=== PATIENT | male | born 1950 | race Caucasian/White ===

== ENCOUNTER → 2017-09-30 | Day surgery (SDC) | payer BC ==
--- NOTE | 2017-09-22 15:19 | DIAGNOSTIC IMAGING REPORT ---
CHEST 2 VIEWS ROUTINE CLINICAL HISTORY: Preoperative evaluation. Left inguinal hernia. COMPARISON STUDY: No previous studies for comparison. FINDINGS: There is a possible 6 mm right upper lobe nodule. Lateral view demonstrates irregular opacities projecting over the heart which may reflect lingular and right middle lobe airspace opacity with possible bronchiectasis. Cardiac size is normal. Mediastinal contours are unremarkable. There is no evidence for pulmonary edema. IMPRESSION: 1. Suspected mild lingular and right middle lobe airspace opacity with possible bronchiectasis. These findings are age indeterminate. 2. Possible 6 mm right upper lobe nodule. A follow-up chest CT is recommended. Electronically signed by: Valdo Bella M.D. 09/22/2017 3:17 PM Dictated Date/Time: 09/22/2017 3:15 PM
[2017-09-22 15:41] LABS: BASO % 0.3 %; BASO ABS # 0.02 K/uL (0-0.2); EOS % 1.4 %; EOS ABS # 0.11 K/uL (0-0.5); HEMATOCRIT 44.7 % (42-52); HEMOGLOBIN 14.8 g/dL (14.0-18.0); IG# 0.02 K/uL (0.00-0.02); LYMPH % 23.4 %; LYMPH ABS # 1.84 K/uL (1.2-3.4); MEAN CELL VOLUME 80.5 fL (80-100); MEAN CORPUSCULAR HEMOGLOBIN 26.7 pg (25-34); MEAN CORPUSCULAR HGB CONC 33.1 g/dl (32-36); MONO % 7.2 %; MONO ABS # 0.57 K/uL (0.11-0.59); NEUT % 67.4 %; NEUT ABS # 5.31 K/uL (1.4-6.5); PLATELET COUNT 242 K/uL (130-400); RED CELL DISTRIBUTION WIDTH CV 15.1 % (11.5-14.5); RED CELL DISTRIBUTION WIDTH SD 44.2 fL (36.4-46.3); WHITE BLOOD COUNT 7.87 K/uL (4.8-10.8)
[2017-09-22 15:58] LABS: BLOOD UREA NITROGEN 11 mg/dl (7-18); CALCIUM 8.9 mg/dl (8.5-10.1); CARBON DIOXIDE 32 mmol/L (21-32); CREATININE 1.02 mg/dl (0.60-1.40); GLUCOSE 83 mg/dl (70-99); SODIUM 140 mmol/L (136-145)
[2017-09-23 14:21] VITALS: Ht 169.4 cm; Wt 75.9 kg
[~2017-09-30] VITALS: Ht 169.4 cm; Wt 75.9 kg
[~2017-09-30] MED LIST: ACETAMINOPHEN 1000 MG/100 ML IV IV ONE; ATROPINE SULFATE 0.1 MG/ML 5ML SYR IV PRN; BACITRACIN 50000 UNIT VIAL ONE; BUPIVACAINE 0.5 % 5 MG/1 ML PF 10ML VIAL ONE; CEFAZOLIN SOD 1 GM VIAL ONE; DEXAMETHASONE SOD INJ 4 MG/ML VIAL ONE; EpHEDrine SULFATE 50MG/5ML SYR ONE; EpHEDrine SULFATE INJ 50 MG/ML AMP IV PRN; FENTANYL CITRATE INJ 50 MCG/1 ML 2 ML VIAL IV PRN; FENTANYL CITRATE INJ 50 MCG/1 ML 2 ML VIAL ONE; GLYCOPYRROLATE INJ 0.2 MG/ML VIAL ONE; HYDROmorphone INJ 0.5 MG/0.5 ML SYR IV PRN; KETOROLAC TROMETHAMINE 30 MG/ML VIAL ONE; LACTATED RINGER'S 1000ML 1,000 ML IV SCH; LARYING-O-JET KIT (LTA) ONE; LIDOCAINE HCL 2% 2 ML VIAL (20MG/ML) ONE; MIDAZOLAM HCL 1 MG/ML 2ML VIAL ONE; MULT-506 PO; MoRPHine SULFATE 4 MG/ML 1 ML CARP\\VIAL IV PRN; NEOSTIGMINE METHYLSULFATE 5 MG/5 ML SYR ONE; ONDANSETRON INJ 2 MG/ML 2 ML VIAL IV PRN; ONDANSETRON INJ 2 MG/ML 2 ML VIAL ONE; OXYC-57 PO; OXYCODONE/ACETAMINOPHEN 5-325 TAB PO PRN; PROPOFOL IV EMULSION 10 MG/ML 20 ML VIAL ONE; ROCURONIUM BROMIDE 10 MG/ML 5 ML VIAL ONE
[2017-09-30 07:13] VITALS: BP 125/65; PULSE 67; TEMP 36.8; O2SAT 98
--- NOTE | 2017-09-30 08:19 | History & Physical Bridge Note ---
H&P Re-Evaluation Bridge Note: I have examined the patient, reviewed the History & Physical and in the interval since the performance of the History & Physical I have noted the following changes of clinical significance: No changes noted pt marked SO at bedside, all questions answered
--- NOTE | 2017-09-30 08:27 | Discharge Instructions ---
Discharge Instructions Date of Service September 30, 2017. Visit Reason for Visit: Left Inguinal Hernia Discharge Discharge Diagnosis / Problem: repaie of hernia Discharge Goals Goal(s): Decrease discomfort Activity Recommendations Activity Limitations: as noted below Lifting Limitations: no more than 10 pounds Shower/Bathe: tomorrow Driving or Machine Use: resume 3 days after discharge Anesthesia . Post Anesthesia Instructions: If you have had General Anesthesia or IV Sedation: * Do not drive today. * Resume driving when surgeon permits. * Do not make important decisions or sign legal documents today. * Call surgeon for: 1. Temperature elevations greater than 101 degrees F. 2. Uncontrollable pain. 3. Excessive bleeding. 4. Persistent nausea and vomiting. 5. Medication intolerance (nausea, vomiting or rash). * For nausea and vomiting use only clear liquids such as: tea, soda, bouillon until nausea subsides, then gradually increase diet as tolerated. * If you have any concerns or questions, call your surgeon's office. If physician is unavailable and it is an emergency, call 911 or go to the nearest emergency room. . Instructions / Follow-Up Instructions / Follow-Up in 1 week, call [phone] if you have any questions or if you do not already have an appt Ice left groin off and on alternating every 20 minutes until bedtime Diet Recommendations Recommended Home Diet: no limitations Pending Studies Studies pending at discharge: no Medical Emergencies . Who to Call and When: Medical Emergencies: If at any time you feel your situation is an emergency, please call 911 immediately. . Non-Emergent Contact Non-Emergency issues call your: Surgeon Call Non-Emergent contact if: you have a fever, temperature is above 101.5, your pain is not controlled, your pain is concerning you, wound has increased redness, you have any medication questions . . "Provider Documentation" section prepared by Zachary Sahni. .
--- NOTE | 2017-09-30 09:29 | [facility] Post Operative Brief Note ---
Immediate Operative Summary Operative Date September 30, 2017. 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 Left ileoinguinal nerve Anesthesia Type General
--- NOTE | 2017-09-30 10:10 | Anesthesiology Progress Note ---
Anesthesia Post Op Note Date & Time September 30, 2017 at 10:10 Vital Signs Pain Intensity: 0 Vital Signs Past 12 Hours Date Time Temp Pulse Resp B/P (MAP) Pulse Ox O2 Delivery O2 Flow Rate FiO2 09/30/17 10:05 59 16 133/64 98 Oxymask 5 09/30/17 09:55 66 14 132/64 99 Oxymask 10 09/30/17 09:49 36.1 77 16 134/69 96 Oxymask 10 09/30/17 07:13 36.8 67 18 125/65 (85) 98 Room Air Notes Mental Status: alert / awake / arousable, participated in evaluation Pt Amnestic to Procedure: Yes Nausea / Vomiting: adequately controlled Pain: adequately controlled Airway Patency, RR, SpO2: stable & adequate BP & HR: stable & adequate Hydration State: stable & adequate Anesthetic Complications: no major complications apparent
[2017-09-30 10:35] VITALS: BP 137/63; PULSE 63; TEMP 36.2; O2SAT 97
[2017-09-30 11:07] VITALS: BP 126/62; PULSE 65; O2SAT 95
--- NOTE | 2017-09-30 11:10 | OPERATIVE REPORT ---
DATE OF OPERATION: 09/30/2017 SURGEON: Mahendra Kelly MD INDUSTRIAL SEAMSTRESS: Zachary Sahni PA-C PREOPERATIVE DIAGNOSIS: Left inguinal hernia. 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 PROCEDURE: Left direct inguinal hernia repair with mesh reinforcement, Marlex, and excision of neuroma of ilioinguinal nerve. SUMMARY: The patient was brought into the operating room under general anesthesia, left lower quadrant was prepped with Betadine solution and properly draped. Xylocaine 1% without epinephrine was used to infiltrate 2 fingerbreadths medial anterior superior iliac crest and preemptive analgesia. We infiltrated subQ down to the external oblique fascia. At this point, an incision was made parallel to the inguinal ligament, deepened to subcutaneous tissue. Small vessels were ligated with 2-0 silk. Went onto the external oblique. Once we were out of the external oblique, we dissected on top up to the external ring. We could see there was a little venous plexus along the cord structures at that time just distal to the external ring. The external oblique was incised and cut along the course of its fibers. When we were doing this, we identified that the ilioinguinal nerve was actually trapped and quite large right at the internal ring as it came out. The suspicion is that this may have been a neuroma and have been causing some of the problem; therefore, we excised the nerve. Then, we would excise it more as it came out near the internal ring because it was close to, again larger than normal, suspicious that this may cause another neuroma. The cord structures were then elevated with a Honor drain. We identified the patient had a large direct hernia. There was no indirect component. We used 3-0 silk to close the transversalis fascia to get the direct hernia out of the way. Then we brought in a sheet of Marlex mesh and sutured with 2-0 nylon suture to the symphysis pubis with shelving portion of the inguinal ligament, conjoined tendon around to reconstruct the internal ring that could only accommodate the tip of a hemostat. The area was then checked for hemostasis and appeared satisfactory with small bleeder right at the symphysis pubis area that was controlled. This appeared to be a little small venous plexus, but very minor and it was controlled by the time we were done. We then irrigated the area. There was no further bleeding appreciated. We closed the external oblique on top of the cord structure and the mesh with 3-0 silk suture completely exteriorizing the mesh and cord from subcutaneous tissue, closed subQ with 2-0 Dexon, valeria for skin edges. Dressing was applied. The procedure was tolerated well by the patient. Estimated blood loss about 5 mL. The patient was taken to recovery room in good condition. I attest to the content of the Intraoperative Record and any orders documented therein. Any exception s are noted below.
[2017-09-30 11:35] VITALS: BP 116/59; PULSE 60; TEMP 35.9; O2SAT 97
== END | disposition home or self-care (01) ==
LOC: C.ACU 06:44
PROVIDERS: ATTEND Surgery
DX: K40.30 Unilateral inguinal hernia, with obstruction, without gangrene, not specified as recurrent (principal); K21.9 Gastro-esophageal reflux disease without esophagitis; I44.7 Left bundle-branch block, unspecified; Z83.3 Family history of diabetes mellitus

== ENCOUNTER → 2017-12-01 | Outpatient (CLI) | payer BC ==
[~2017-12-01] MED LIST changes: -ACETAMINOPHEN 1000 MG/100 ML IV IV ONE; -ATROPINE SULFATE 0.1 MG/ML 5ML SYR IV PRN; -BACITRACIN 50000 UNIT VIAL ONE; -BUPIVACAINE 0.5 % 5 MG/1 ML PF 10ML VIAL ONE; -CEFAZOLIN SOD 1 GM VIAL ONE; -DEXAMETHASONE SOD INJ 4 MG/ML VIAL ONE; -EpHEDrine SULFATE 50MG/5ML SYR ONE; -EpHEDrine SULFATE INJ 50 MG/ML AMP IV PRN; -FENTANYL CITRATE INJ 50 MCG/1 ML 2 ML VIAL IV PRN; -FENTANYL CITRATE INJ 50 MCG/1 ML 2 ML VIAL ONE; -GLYCOPYRROLATE INJ 0.2 MG/ML VIAL ONE; -HYDROmorphone INJ 0.5 MG/0.5 ML SYR IV PRN; -KETOROLAC TROMETHAMINE 30 MG/ML VIAL ONE; -LACTATED RINGER'S 1000ML 1,000 ML IV SCH; -LARYING-O-JET KIT (LTA) ONE; -LIDOCAINE HCL 2% 2 ML VIAL (20MG/ML) ONE; -MIDAZOLAM HCL 1 MG/ML 2ML VIAL ONE; -MoRPHine SULFATE 4 MG/ML 1 ML CARP\\VIAL IV PRN; -NEOSTIGMINE METHYLSULFATE 5 MG/5 ML SYR ONE; -ONDANSETRON INJ 2 MG/ML 2 ML VIAL IV PRN; -ONDANSETRON INJ 2 MG/ML 2 ML VIAL ONE; -OXYCODONE/ACETAMINOPHEN 5-325 TAB PO PRN; -PROPOFOL IV EMULSION 10 MG/ML 20 ML VIAL ONE; -ROCURONIUM BROMIDE 10 MG/ML 5 ML VIAL ONE
--- NOTE | 2017-12-01 09:42 | DIAGNOSTIC IMAGING REPORT ---
PET/CT CLINICAL HISTORY: SINGLE PULMONARY NODULE TECHNIQUE: A PET/CT was performed from the skull base through the upper thighs following intravenous injection of 13.59 mCi of F 18 FDG IV. The injection was performed at 7:08 AM on December 01, 2017 and imaging began at 8:01 AM on December 01, 2017. Unenhanced CT was performed for attenuation correction purposes and anatomic localization. COMPARISON STUDY: Chest CT October 21, 2017. FINDINGS: Head and neck: No abnormal FDG uptake is identified within the neck. There is no cervical lymphadenopathy. Chest: Note is made of mild bronchiectasis and multiple ill-defined nodules within the lungs. A 1 cm right middle lobe nodule shown image 103 is similar to exam of October 21, 2017. This demonstrates minimal FDG uptake with an SUV max of 2.9. An adjacent 1.3 cm right middle lobe nodule shown image 104 is new. This has an SUV max of 6.4. An additional adjacent nodular opacity within the right middle lobe has no significant FDG uptake. Note is made of a 1.2 cm cavity/focus of bronchiectasis within the right upper lobe which has mild FDG uptake with an SUV max of 1.9. This is similar to prior CT. No enlarged thoracic lymph nodes are present. There is mild FDG uptake within a nonenlarged right hilar lymph node with an SUV max of 4.5. This node measures 7 mm in short axis diameter and is shown on image 81. The size the heart is normal. Abdomen and Pelvis: No abnormal FDG uptake is identified within the abdomen or the pelvis. There is no abdominal or pelvic lymphadenopathy. Postsurgical findings within the left groin are noted. 2.4 cm hypodense right hepatic dome lesion was shown to represent a hemangioma prior CT. There is colonic diverticulosis without evidence for acute diverticulitis. The appendix is normal. Musculoskeletal: No suspicious skeletal lesions are present. IMPRESSION: 1. Numerous ill-defined nodules within the lungs with associated bronchiectasis. No significant change in a 1 cm right middle lobe nodule which demonstrates mild FDG uptake since chest CT of October 21, 2017. Interval development of an adjacent FDG avid 1.3 cm right middle lobe nodule. Overall, the findings favor an infectious/inflammatory process. No change in a 1.2 cm cavity within the right upper lobe which demonstrates mild FDG uptake. These findings are likely benign. A neoplastic process is within the differential but considered less likely. A follow-up chest CT in 3 months is recommended. 2. Mild FDG uptake within nonenlarged bilateral hilar lymph nodes, greater on the right. This may be reactive. These nodes can be assessed on follow-up CT. 3. Diminished FDG uptake within the interventricular septum of the left ventricle which is not definitive but raises the possibility of an old infarct. Electronically signed by: Valdo Bella M.D. 12/01/2017 9:41 AM Dictated Date/Time: 12/01/2017 8:57 AM
== END | disposition home or self-care (01) ==
LOC: C.PET 06:49
PROVIDERS: ATTEND Internal Medicine Critical Care Medicine
DX: R93.8 Abnormal findings on diagnostic imaging of other specified body structures (principal); R91.1 Solitary pulmonary nodule